=== PATIENT | female | born 1970 | race Caucasian/White ===

== ENCOUNTER 2020-09-11 14:04 | Outpatient (CLI) | payer OTHER, SELFPAY ==
--- NOTE | ~2020-09-11 | US_ITS ---
EXAMINATION: US abdomen limited DATE: 09/11/2020 14:30 INDICATION: Abdominal pain TECHNIQUE: Multiple grayscale and Doppler ultrasound images of the abdomen were obtained. COMPARISON: 10/10/2016 FINDINGS: The pancreatic head and body are normal in appearance. The pancreatic tail is not visualized. Liver has normal contour, with a smooth surface. Visualized proximal to mid abdominal aorta is normal in ca liber. There is increased parenchymal echogenicity and coarsened echotexture consistent with diffuse hepatic steatosis. 4.1 cm centrally isoechoic peripherally hypoechoic mass in the right hepatic lobe. No intrahepatic biliary duct dilation suspected. Portal venous flow was seen in the hepatopetal, no rmal direction and has normal Doppler waveform. Hepatic venous flow was seen in the hepatofugal, norm al direction with normal Doppler waveform. Right kidney measures 11.7 x 4.6 x 5.4 cm and demonstrates normal echogenicity and contour with no hydronephrosis. The gallbladder is normal in appearance. Th ere is no cholelithiasis. The common bile duct measures 4 mm, which is normal. Sonographic Rashid sig n was reported as negative by the endband cutter hand. The visualized proximal inferior vena cava is normal. IMPRESSION: 1. Diffuse hepatic steatosis with indeterminate 4.1 cm hypoechoic lesion in the right hepatic lobe wh ich raises concern for malignancy either primary or metastatic with differential also including benig n neoplasm, complex hepatic cyst or hepatic abscess in the appropriate clinical setting. Dr. Cho discussed these findings with Arlen Beavers at 3:20 PM. Reviewed, dictated and finalized at location A. IMPRESSION: 1. Diffuse hepatic steatosis with indeterminate 4.1 cm hypoechoic lesion in the right hepatic lobe which raises concern for malignancy either primary or metas tatic with differential also including benign neoplasm, complex hepatic cyst or hepatic abscess in the appropriate clinical setting. Dr. Cho discussed th nury findings with Arlen Beavers at 3:20 PM.
--- NOTE | ~2020-09-11 | XR_ITS ---
XR knee RT 3V 09/11/2020 14:37 Indication: Right knee pain Procedure: 3 views right knee Comparison: No prior studies for comparison. Findings: No fracture, subluxation or dislocation. No significant joint space narrowing. No joint eff usion. No foreign bodies. Impression: 1: No acute bone or joint abnormality. Reviewed, dictated and finalized at location A. Impression: 1: No acute bone or joint abnormality.
== END 2020-09-11 14:05 | disposition home or self-care (01) ==
LOC: ANHIMG 14:05
PROVIDERS: PCP Internal Medicine; Visit Provider Nurse Practitioner
DX: M25.561 Pain in right knee (principal); R10.11 Right upper quadrant pain; K76.0 Fatty (change of) liver, not elsewhere classified
CPT/HCPCS: 73562; 76705

== ENCOUNTER 2020-09-18 09:19 | Outpatient (CLI) | payer OTHER, SELFPAY ==
--- NOTE | ~2020-09-18 | NM_ITS ---
EXAMINATION: NM hepatobiliary wo pharm DATE: 09/18/2020 12:24 INDICATION: Right upper quadrant abdominal pain. COMPARISON: Ultrasound abdomen 09/11/2020 TECHNIQUE: 5.1 mCi Tc-99m mebrofenin (Choletec) was administered intravenously. Scintigraphic images of the abdomen were obtained for one hour. Then, the patient drank 8 oz Ensure, and imaging was cont inued for 60 minutes. FINDINGS: There is normal clearance of radiotracer from the blood pool. There is decreased tracer upt joy in right hepatic lobe. Activity progresses to the bowel and gallbladder. Gallbladder ejection fr action (GBEF) was 71%. Note that with this technique, normal GBEF >= 33%. IMPRESSION: 1. Decreased radiotracer uptake in right hepatic lobe correlating with a hypoechoic mass on ultrasou nd suspicious for malignancy. Abdomen MRI without and with contrast is recommended. Reviewed, dictated and finalized at location A. IMPRESSION: 1. Decreased radiotracer uptake in right hepatic lobe correlating with a hypoe choic mass on ultrasound suspicious for malignancy. Abdomen MRI without and wit h contrast is recommended.
== END 2020-09-18 09:20 | disposition home or self-care (01) ==
PROVIDERS: PCP Internal Medicine; Visit Provider Nurse Practitioner
DX: R10.11 Right upper quadrant pain (principal); R93.2 Abnormal findings on diagnostic imaging of liver and biliary tract
CPT/HCPCS: 78226; A9537

== ENCOUNTER 2020-09-21 08:30 | Outpatient (CLI) | payer OTHER, SELFPAY ==
--- NOTE | ~2020-09-21 | MR_ITS ---
EXAMINATION: MR abdomen wo/w con DATE: 09/21/2020 09:36 INDICATION: Liver mass. Hepatomegaly. TECHNIQUE: Magnetic resonance imaging (MRI) of the abdomen was performed without and with 20 mL Multi Blair intravenous contrast. Sequences included coronal T2-weighted FS FSE, coronal and axial FS FIEST A, axial T2-weighted FSE, coronal LAVA-flex, axial STIR FSE, axial DWI, axial dual-echo T1-weighted F SPGR, and axial LAVA. Postcontrast sequences included coronal LAVA-flex and a time course of axial LA VA. COMPARISON: Abdomen ultrasound 09/11/2020 FINDINGS: There is diffuse hepatic steatosis. In the right hepatic lobe, there is a 4.0 x 2.7 cm thick-walled n onenhancing heterogeneous mass with increased T1-weighted signal intensity in the periphery. The gall bladder, spleen, pancreas, adrenal glands, and kidneys are normal. There are no dilated loops of dhaval l. There are no pathologically enlarged lymph nodes. There is no free intraperitoneal fluid. IMPRESSION: 1. 4.0 cm liver mass, consistent with hematoma. Correlate clinically for any signs of infection to carrillo ggest abscess. Follow-up imaging is recommended to confirm resolution and exclude malignancy. 2. Diffuse hepatic steatosis. Reviewed, dictated and finalized at location A. IMPRESSION: 1. 4.0 cm liver mass, consistent with hematoma. Correlate clinically for any si gns of infection to suggest abscess. Follow-up imaging is recommended to confir m resolution and exclude malignancy. 2. Diffuse hepatic steatosis.
[2020-09-21 09:03] LABS: Estimated Glomerular Filt Rate > 60
== END 2020-09-21 08:31 | disposition home or self-care (01) ==
PROVIDERS: PCP Internal Medicine; Visit Provider Nurse Practitioner
DX: R16.0 Hepatomegaly, not elsewhere classified (principal); K76.0 Fatty (change of) liver, not elsewhere classified
CPT/HCPCS: 74183; A9577

== ENCOUNTER 2020-12-06 11:14 | Outpatient (CLI) | payer OTHER, SELFPAY ==
--- NOTE | ~2020-12-06 | MR_ITS ---
EXAMINATION: MR abdomen wo/w con DATE: 12/06/2020 12:12 INDICATION: Hepatomegaly, not elsewhere classified. Liver mass. TECHNIQUE: Magnetic resonance imaging (MRI) of the abdomen was performed without and with 20 mL Multi Blair intravenous contrast. Sequences included coronal T2-weighted FS FSE, coronal and axial FS FIEST A, axial T2-weighted FSE, coronal LAVA-flex, axial STIR FSE, axial DWI, axial dual-echo T1-weighted F SPGR, and axial LAVA. Postcontrast sequences included coronal LAVA-flex and a time course of axial LA VA. COMPARISON: Abdomen MRI 09/21/2020 FINDINGS: There is diffuse hepatic steatosis. There is a 2.0 x 2.0 x 2.8 cm mass in right hepatic lobe that dem onstrates increased T1-weighted signal intensity and rim of decreased T2 weighted signal intensity. T he mass demonstrates thin rim enhancement. These findings are consistent with hematoma. The mass kaylee ured 4.8 x 2.7 x 4.0 cm on 09/21/20 The gallbladder, spleen, pancreas, adrenal glands, and kidneys are normal. There are no dilated loops of bowel. There are no pathologically enlarged lymph nodes. There is no free intraperitoneal fluid. IMPRESSION: 1. 2.0 cm hematoma in right hepatic lobe, decreased in size from 4.8 cm on 09/21/2020. 2. Diffuse hepatic steatosis. Reviewed, dictated and finalized at location B. IMPRESSION: 1. 2.0 cm hematoma in right hepatic lobe, decreased in size from 4.8 cm on 2020. 2. Diffuse hepatic steatosis.
[2020-12-06 11:41] LABS: Estimated Glomerular Filt Rate > 60
== END 2020-12-06 11:15 | disposition home or self-care (01) ==
PROVIDERS: PCP Internal Medicine; Visit Provider Nurse Practitioner
DX: R16.0 Hepatomegaly, not elsewhere classified (principal); K76.89 Other specified diseases of liver; K76.0 Fatty (change of) liver, not elsewhere classified
CPT/HCPCS: 74183; A9577

== ENCOUNTER → 2020-12-26 08:48 | Outpatient (CLI) | payer OTHER, SELFPAY ==
--- NOTE | ~2020-12-26 | MR_ITS ---
EXAMINATION: MR knee RT wo con DATE: 12/26/2020 09:44 INDICATION: Right knee pain. TECHNIQUE: Magnetic resonance imaging (MRI) of the right knee was performed without intravenous contr ast. Sequences included axial PD-weighted FS FSE, coronal PD-weighted FSE and PD-weighted FS FSE, sag ittal PD-weighted FSE, and sagittal T2-weighted FS FSE. COMPARISON: Right knee radiographs 12/16/2020 FINDINGS: Medial compartment: Medial meniscus is normal. There is shallow partial-thickness cartilage loss of tibial condyle. There is partial-thickness cartilage loss of femoral condyle, deep at the lateral articular surface and sh allow at the central articular surface. There are tiny marginal osteophytes. Lateral compartment: Lateral meniscus is normal. Lateral compartment cartilage is normal. Patellofemoral compartment: There is shallow partial-thickness cartilage loss of patellar median ridge and medial facet with mild subchondral edema-like marrow signal intensity. There is shallow partial-thickness cartilage loss of medial trochlea. Ligaments and tendons: The anterior and posterior cruciate ligaments are normal. Medial collateral ligament and lateral irena ateral ligament complex are normal. There is mild patellar tendinopathy. Fluid: There is a small knee joint effusion. There is a small East's cyst. There is mild prepatellar and carrillo perficial infrapatellar bursitis. IMPRESSION: 1. Moderate chondrosis of medial compartment and mild chondrosis of patellofemoral compartment. 2. Small knee joint effusion. 3. Small East's cyst. Reviewed, dictated and finalized at location A. IMPRESSION: 1. Moderate chondrosis of medial compartment and mild chondrosis of patellofemo ral compartment. 2. Small knee joint effusion. 3. Small East's cyst.
== END ==
PROVIDERS: PCP Internal Medicine; Visit Provider Nurse Practitioner Family
DX: M71.21 Synovial cyst of popliteal space [Baker], right knee (principal); M25.461 Effusion, right knee
CPT/HCPCS: 73721

== ENCOUNTER 2021-05-09 14:37 | Emergency (ER) | payer OTHER, SELFPAY ==
[2021-05-09 14:44] VITALS: BP 128/75; PULSE 97; RESP 18; TEMP 36.3; O2SAT 99
--- NOTE | 2021-05-09 15:06 | ED.FEMALEGU ---
HPI - Female Genitourinary General Chief complaint: Urogenital-Female Stated complaint: R SIDED ABD PAIN/NAUSEA/ Time Seen by Provider: 05/09/21 15:06 Source: patient, RN notes reviewed and old records reviewed Mode of arrival: ambulatory Limitations: no limitations History of Present Illness HPI Narrative: 51 year old female who presents to [facility] care with complaints of generalized feeling rundown for the past 2 days. Patient reports this morning she was achy and chilled with no fever noted. She states she has some urinary frequency no burning with urination does have some right flank pain with some nausea this morning. Patient has no suprapubic tenderness or any McBurney point tenderness noted on examination. Patient reports that she took some Tylenol and went back to bed this morning she felt so bad, denies any incidence of diarrhea. MD elicited complaint: dysuria and flank pain (right side) Related Data Home Medications Medication Instructions Recorded Confirmed levonorgestrel-ethinyl estradiol 1 tablet PO DAILY 05/03/19 05/06/21 0.1 mg-20 mcg tablet omeprazole 20 mg tablet,delayed 20 mg PO DAILY 02/21/20 05/06/21 release Allergies Allergy/AdvReac Type Severity Reaction Status Date / Time Sulfa (Sulfonamide Allergy Unknown Unknown Verified 05/06/21 14:53 Antibiotics) sulfanilamide Allergy Unknown Unknown Verified 05/06/21 14:53 Review of Systems Review of Systems: CONSTITUTIONAL: Denies fever, chills, or sweats. EYES: Denies visual changes, redness, or discharge. ENT: Denies rhinorrhea, congestion, sore throat, or otalgia. CARDIOVASCULAR: Denies chest pain, palpitations, or edema. RESPIRATORY: Denies cough or dyspnea. GASTROINTESTINAL: Denies abdominal pain,positive for nausea, no vomiting, or diarrhea. GENITOURINARY: Denies dysuria or hematuria.urinary frequency and right flank pain SKIN: Denies rash or itching. MUSCULOSKELETAL: Denies back pain, joint pain, felt body aches this morning NEUROLOGIC: Denies headache, numbness, or weakness. PSYCHIATRIC: Denies anxiety or depression. All systems reviewed & are unremarkable except as noted in HPI and below PMFSH Past Medical History Medical History BMI greater than 40 Chondromalacia of knee Degenerative joint disease of knee Fibromyalgia Left knee DJD Liver mass Medial meniscus tear Migraine Right knee pain Urinary frequency Wears glasses Surgical History Surgical History H/O section 2006, 2008 H/O rotator cuff surgery Family History Family History Father Family history of elevated blood lipids Hypertension Grandparent Breast cancer Bone cancer Social History Social History Social History: Caffeine-1 cup coffee daily Smoking packs per day: 1 Smoking cigarettes per day: 20.0 Years smoked: 7 Smoking pack-years: 7.00 Tobacco type: cigarettes Smoking end date: 04/19/94 Alcohol intake: current Drinks per week: 6 Alcohol use details: social Comments At time of signature, agree with nursing past medical, surgical, social and family history. There is no relevant family history pertinent to the presenting complaint Exam Narrative: GENERAL: Well-appearing, well-nourished, obese and in no acute distress. HEAD: Normocephalic, atraumatic. EYES: PERRLA and EOMI. ENT: Nares clear, no rhinorrhea or epistaxis. Mucous membranes moist.TM's normal with good light reflex, throat pink with no lesions or exudates no tonsil enlargement NECK: Supple.no lymphadenopathy CHEST: Clear to auscultation. No respiratory distress.SAO2 99% on room air HEART: Regular rate and rhythm. No murmur heard. Normal peripheral pulses. ABDOMEN: Soft, nontender, nondistended, normal active bowel sounds. right flank pain on
== END 2021-05-09 15:28 | disposition home or self-care (01) ==
PROVIDERS: Emergency Provider Registered Nurse; PCP Internal Medicine
DX: N39.0 Urinary tract infection, site not specified (principal); F17.210 Nicotine dependence, cigarettes, uncomplicated; M79.7 Fibromyalgia; M17.12 Unilateral primary osteoarthritis, left knee
CPT/HCPCS: 81003; 87077; 87086; 87186; 99213; G0463

== ENCOUNTER 2021-06-09 13:12 | Emergency (ER) | payer OTHER, SELFPAY ==
[2021-06-09 13:19] VITALS: BP 149/84; PULSE 86; RESP 16; TEMP 36.4; O2SAT 100
[2021-06-09 13:27] VITALS: BP 149/84; PULSE 86; RESP 16; TEMP 36.4; O2SAT 100
--- NOTE | 2021-06-09 13:31 | ED.URI ---
HPI - URI/Sore Throat General Chief Complaint: Upper Respiratory Infection Stated Complaint: Ear pain Time Seen by Provider: 06/09/21 13:31 Source: patient Mode of arrival: ambulatory Limitations: no limitations Related Data Home Medications Medication Instructions Recorded Confirmed levonorgestrel-ethinyl estradiol 1 tablet PO DAILY 05/03/19 06/09/21 0.1 mg-20 mcg tablet Allergies Allergy/AdvReac Type Severity Reaction Status Date / Time Sulfa (Sulfonamide Allergy Unknown Unknown Verified 06/09/21 13:23 Antibiotics) sulfanilamide Allergy Unknown Unknown Verified 06/09/21 13:23 [facility] Past Medical History Medical History BMI greater than 40 Chondromalacia of knee Degenerative joint disease of knee Fibromyalgia Left knee DJD Liver mass Medial meniscus tear Migraine Right knee pain Urinary frequency Wears glasses Surgical History Surgical History H/O section 2006, 2008 H/O rotator cuff surgery Family History Family History Father Family history of elevated blood lipids Hypertension Grandparent Breast cancer Bone cancer Social History Social History Social History: Caffeine-1 cup coffee daily Smoking packs per day: 1 Smoking cigarettes per day: 20.0 Years smoked: 7 Smoking pack-years: 7.00 Tobacco type: cigarettes Smoking end date: 04/19/94 Alcohol intake: current Drinks per week: 6 Alcohol use details: social Course Vital Signs Vital signs: Vital Signs Temperature 36.4 C 06/09/21 13:19 Pulse Rate 86 06/09/21 13:19 Respiratory Rate 16 06/09/21 13:19 Blood Pressure 149/84 H 06/09/21 13:19 Pulse Oximetry 100 06/09/21 13:19 Temperature 36.4 C 06/09/21 13:27 Pulse Rate 86 06/09/21 13:27 Respiratory Rate 16 06/09/21 13:27 Blood Pressure 149/84 H 06/09/21 13:27 Pulse Oximetry 100 06/09/21 13:27 Discharge Plan Discharge Clinical Impression: Acute parotitis Patient Disposition: Home, Self-Care Condition: Stable Instructions: Antibiotic Form, Parotid Duct Obstruction (ED), Sialoadenitis (ED) Additional Instructions: Take medications as prescribed. Take ibuprofen every 6 to 8 hours to treat pain. Apply a warm compress for 10 to 15 minutes four times a day. Continue to chew on the right side. Schedule an appointment with your dentist. Prescriptions: New amoxicillin-pot clavulanate 875-125 mg tablet 1 tablet PO Q12H 10 Days Qty: 20 RF: 0 pilocarpine HCl 5 mg tablet 5 mg PO TID 7 Days Qty: 21 RF: 0 No Action levonorgestrel-ethinyl estrad [Orsythia] 0.1-20 mg-mcg tablet 1 tablet PO DAILY RF: 0 amitriptyline 50 mg tablet 50 mg PO DAILY Qty: 90 RF: 3 venlafaxine 75 mg tablet extended release 24hr 75 mg PO DAILY Qty: 90 RF: 3 sumatriptan succinate [Imitrex] 100 mg tablet 100 mg PO ONCE Qty: 9 RF: 3 propranolol 40 mg tablet 40 mg PO Q12H Qty: 180 RF: 3 Follow-up/Referrals: Mathieu Cervantes DO [Primary Care Provider] - Time of Disposition: 13:45
--- NOTE | 2021-06-09 13:48 | ED.GENADULT ---
HPI - General Adult General Chief complaint: Upper Respiratory Infection Stated complaint: Ear pain Time Seen by Provider: 06/09/21 13:31 Source: patient Mode of arrival: ambulatory Limitations: no limitations History of Present Illness HPI narrative: 51 yo F presents with pain, swelling and warmth to L side of face for 2 days. Called PCP but not able to see her. does have pain with talking and chewing but denies dental pain. denies L ear pain. no other symptoms. all systems reviewed and negative except as noted above. Related Data Home Medications Medication Instructions Recorded Confirmed levonorgestrel-ethinyl estradiol 1 tablet PO DAILY 05/03/19 06/09/21 0.1 mg-20 mcg tablet Allergies Allergy/AdvReac Type Severity Reaction Status Date / Time Sulfa (Sulfonamide Allergy Unknown Unknown Verified 06/09/21 13:23 Antibiotics) sulfanilamide Allergy Unknown Unknown Verified 06/09/21 13:23 Review of Systems Review of Systems: CONSTITUTIONAL: Denies fever, chills, or sweats. EYES: Denies visual changes, redness, or discharge. ENT: Denies rhinorrhea, congestion, sore throat, or otalgia. Swelling and pain to L side of face wtih warmth. CARDIOVASCULAR: Denies chest pain, palpitations, or edema. RESPIRATORY: Denies cough or dyspnea. GASTROINTESTINAL: Denies abdominal pain, nausea, vomiting, or diarrhea. GENITOURINARY: Denies dysuria or hematuria. SKIN: Denies rash or itching. MUSCULOSKELETAL: Denies back pain, joint pain, or myalgia. NEUROLOGIC: Denies headache, numbness, or weakness. PSYCHIATRIC: Denies anxiety or depression. All other systems reviewed are negative, except as documented in HPI. [facility] Past Medical History Medical History BMI greater than 40 Chondromalacia of knee Degenerative joint disease of knee Fibromyalgia Left knee DJD Liver mass Medial meniscus tear Migraine Right knee pain Urinary frequency Wears glasses Surgical History Surgical History H/O section 2006, 2008 H/O rotator cuff surgery Family History Family History Father Family history of elevated blood lipids Hypertension Grandparent Breast cancer Bone cancer Social History Social History Social History: Caffeine-1 cup coffee daily Smoking packs per day: 1 Smoking cigarettes per day: 20.0 Years smoked: 7 Smoking pack-years: 7.00 Tobacco type: cigarettes Smoking end date: 04/19/94 Alcohol intake: current Drinks per week: 6 Alcohol use details: social Comments At time of signature, agree with nursing past medical, surgical, social and family history. There is no relevant family history pertinent to the presenting complaint. Exam Narrative: GENERAL: This is a well-nourished, well-developed patient, in no apparent distress. HEAD: normocephalic, atraumatic. L parotid gland enlarged with warmth. Enlargement extends into L side of neck just below jaw. there is no erythema or fluctuance. tender on palpation. EYES: PERRL. Sclera clear/white. Vision is grossly intact. EARS: External ears normal, auditory canals clear and without drainage, TMs normal without perforation. Hearing grossly intact. NOSE: External nose normal with no obvious nasal discharge, nares without redness, no rhinorrhea. THROAT: Mucous membranes moist, posterior pharynx clear. NECK: Neck supple, non-tender without lymphadenopathy, thyromegaly. CARDIOVASCULAR: Regular rate and rhythm without murmurs, gallops, or rubs. RESPIRATORY: Clear to auscultation. Breath sounds equal bilaterally. No wheezes, rales, or rhonchi. GASTROINTESTINAL: Abdomen soft, non-tender, nondistended. Bowel sounds are active. No hepato-splenomegaly, or palpable masses. No guarding. SKIN: warm, Dry, intact with no suspicious lesions or
== END 2021-06-09 13:49 | disposition home or self-care (01) ==
PROVIDERS: Emergency Provider Nurse Practitioner Family; PCP Internal Medicine
DX: K11.21 Acute sialoadenitis (principal); Z87.891 Personal history of nicotine dependence; M79.7 Fibromyalgia; M17.10 Unilateral primary osteoarthritis, unspecified knee
CPT/HCPCS: 99213; G0463

== ENCOUNTER 2021-09-14 11:06 | Emergency (ER) | payer OTHER, SELFPAY ==
[2021-09-14 11:11] VITALS: BP 132/79; PULSE 101; RESP 16; TEMP 36.6; O2SAT 100
[2021-09-14 11:28] VITALS: BP 132/79; PULSE 101; RESP 16; TEMP 36.6; O2SAT 100
--- NOTE | 2021-09-14 11:50 | ED.FEMALEGU ---
HPI - Female Genitourinary General Chief complaint: Urogenital-Female Stated complaint: uti symptoms Time Seen by Provider: 09/14/21 11:36 Source: patient Mode of arrival: ambulatory Limitations: no limitations History of Present Illness HPI Narrative: Patient presents today complaining of 4-day history of urinary frequency, dysuria, urgency. Denies abdominal pain, flank pain. Over the last couple of days she is just getting over influenza as well. She has been taking Azo for her symptoms. Patient took Macrobid at the beginning of September for presumed UTI, as part of a refill of her prescription from her PCP. Related Data Home Medications Medication Instructions Recorded Confirmed levonorgestrel-ethinyl estradiol 1 tablet PO DAILY 05/03/19 09/14/21 0.1 mg-20 mcg tablet (Orsythia) Allergies Allergy/AdvReac Type Severity Reaction Status Date / Time Sulfa (Sulfonamide Allergy Unknown Unknown Verified 09/14/21 11:26 Antibiotics) sulfanilamide Allergy Unknown Unknown Verified 09/14/21 11:26 Review of Systems Review of Systems: CONSTITUTIONAL: Denies body aches, fever, chills, or sweats. EYES: Denies visual changes, redness, or discharge. ENT: Denies rhinorrhea, congestion, sore throat, or otalgia. CARDIOVASCULAR: Denies chest pain, palpitations, or edema. RESPIRATORY: Denies cough or dyspnea. GASTROINTESTINAL: Denies abdominal pain, flank pain, nausea, vomiting, or diarrhea. GENITOURINARY:+ Dysuria, frequency, urgency. Denies hematuria SKIN: Denies rash, itching, or wounds. MUSCULOSKELETAL: Denies back pain, joint pain, or myalgia. NEUROLOGIC: Denies headache, numbness, tingling, or weakness. PSYCH: Denies depression or anxiety. [facility] Past Medical History Medical History BMI greater than 40 Chondromalacia of knee Degenerative joint disease of knee Fibromyalgia Left knee DJD Liver mass Medial meniscus tear Migraine Right knee pain Trochanteric bursitis of left hip Urinary frequency Wears glasses Surgical History Surgical History H/O section 2006, 2008 H/O rotator cuff surgery Family History Family History Father Family history of elevated blood lipids Hypertension Grandparent Breast cancer Bone cancer Social History Social History Social History: Caffeine-1 cup coffee daily Smoking packs per day: 1 Smoking cigarettes per day: 20.0 Years smoked: 7 Smoking pack-years: 7.00 Tobacco type: cigarettes Smoking end date: 04/19/94 Alcohol intake: current Drinks per week: 6 Alcohol use details: social Comments At time of signature, I have reviewed and agree with nursing past medical, surgical, social and family history unless otherwise noted. Please see nursing chart for further information. There is no relevant family history pertinent to the presenting complaint Exam Narrative: GENERAL: Well-appearing, well-nourished, and in no acute distress. HEAD: Normocephalic, atraumatic. EYES: EOMI. No redness or drainage. Conjunctivae normal. ENT: Mucous membranes pink and moist. NECK: Normal AROM. CHEST: No respiratory distress. Clear to auscultation. HEART: Regular rate and rhythm. No murmur appreciated. Normal peripheral pulses. ABDOMEN: Soft, nontender, nondistended, normal active bowel sounds.-CVAT MUSCULOSKELETAL: No bony tenderness. EXTREMITIES: Normal range of motion. No edema. SKIN: Warm, dry, no rash. Capillary refill normal. Normal skin turgor. NEURO: No focal deficits. Alert and oriented x3. Gait steady. PSYCH: Normal affect. No signs of depression or anxiety. Course Course Level of Care: Express Care Visit Vital Signs Vital signs: Vital Signs Temperature 97.8 F 09/14/21 11:11 Pulse Rate 101 H
== END 2021-09-14 12:01 | disposition home or self-care (01) ==
PROVIDERS: Emergency Provider Nurse Practitioner; PCP Internal Medicine
DX: N39.0 Urinary tract infection, site not specified (principal); Z87.891 Personal history of nicotine dependence; M79.7 Fibromyalgia; M17.12 Unilateral primary osteoarthritis, left knee
CPT/HCPCS: 81003; 87077; 87086; 87186; 99213; G0463

== ENCOUNTER 2021-09-24 12:44 | Outpatient (RCR) | payer OTHER, SELFPAY ==
[2021-09-24] MEDS: FAMOTIDINE 20 MG TABLET PO (13:54)
[2021-09-24] MEDS: diphenhydrAMINE HCl CAP 25 MG CAPSULE PO (13:54)
[2021-09-24] MEDS: ACETAMINOPHEN 325 MG TABLET 650 MG PO (13:54)
[2021-09-24 13:57] VITALS: BP 122/64; PULSE 68; TEMP 36.5; O2SAT 100
[2021-09-24] MEDS: BEBTELOVIMAB 175 MG/2 ML VIAL IV PUSH (14:12)
[2021-09-24 15:08] VITALS: BP 133/68
== END 2021-09-24 16:00 ==
LOC: AMCINF 12:44
PROVIDERS: PCP Nurse Practitioner; Referring Provider Nurse Practitioner; Visit Provider Internal Medicine Hematology & Oncology
DX: U07.1 COVID-19 (principal)
CPT/HCPCS: A9270; M0222; Q0222

== ENCOUNTER 2021-11-13 07:13 | Outpatient (RCR) | payer OTHER, SELFPAY ==
[2021-09-18 09:49] VITALS: BMI 42.5
== END 2021-12-17 23:59 | disposition home or self-care (01) ==
LOC: ANHWOC 07:13
PROVIDERS: PCP Internal Medicine; Visit Provider Nurse Practitioner
DX: S81.801A Unspecified open wound, right lower leg, initial encounter (principal)
CPT/HCPCS: 99212; 99213; A9270; G0463

== ENCOUNTER 2021-12-24 14:51 | Outpatient (CLI) | payer OTHER, SELFPAY ==
--- NOTE | ~2021-12-24 | US_ITS ---
EXAMINATION: US retroperitoneal comp DATE: 12/24/2021 15:48 INDICATION: CHRONIC CYSTITIS TECHNIQUE: Multiple grayscale and Doppler ultrasound images of the kidneys were obtained. COMPARISON: None. FINDINGS: The right kidney measures 10.9 x 4.2 x 4.6 cm. The left kidney measures 11.8 x 5.1 x 5.6 cm. The kidn eys demonstrate normal parenchymal echogenicity. There is no hydronephrosis. The bladder is normal. IMPRESSION: Unremarkable renal sonogram findings. Reviewed, dictated and finalized at location K.
== END 2021-12-24 14:52 | disposition home or self-care (01) ==
PROVIDERS: PCP Family Medicine; Visit Provider Nurse Practitioner Family
DX: N30.20 Other chronic cystitis without hematuria (principal)
CPT/HCPCS: 76770

== ENCOUNTER 2022-11-05 10:04 | Outpatient (CLI) | payer OTHER, SELFPAY ==
[2022-11-09 11:24] LABS: Kit Draw Collected
== END 2022-11-05 10:05 | disposition home or self-care (01) ==
LOC: ANHGOSHLAB 10:08
PROVIDERS: PCP Family Medicine; Visit Provider Family Medicine
DX: E78.5 Hyperlipidemia, unspecified (principal); I10 Essential (primary) hypertension; R73.09 Other abnormal glucose; E66.9 Obesity, unspecified
CPT/HCPCS: 36415